=== PATIENT | male | born 1980 | race African-American/Black ===

== ENCOUNTER 2022-02-18 07:03 | Emergency (ER) | payer OTHER, MEDICAID ==
[~2022-02-18] VITALS: Ht 160 cm; Wt 79.0 kg
[2022-02-18] MEDS ORDERED: IBUPROFEN 400MG TABLET PO ONE (08:15)
[2022-02-18 08:23] VITALS: BP 141/93
[2022-02-18] MEDS ORDERED: LIDOCAINE HCL/EPINEPHRINE 1%-EPI 1:100,000 20 ML VIAL INFIL ONE (08:45)
== END 2022-02-18 11:11 | disposition home or self-care (01) ==
LOC: ER 07:28
DX: S63.695A Other sprain of left ring finger, initial encounter (principal); X58.XXXA Exposure to other specified factors, initial encounter; Y93.89 Activity, other specified; Y92.89 Other specified places as the place of occurrence of the external cause; Y99.8 Other external cause status; I10 Essential (primary) hypertension; Z87.891 Personal history of nicotine dependence
CPT/HCPCS: 73140; 99283; J3490